=== PATIENT | female | born 1950 | race Caucasian/White ===

== ENCOUNTER 2019-02-21 14:23 | Emergency (ER) | payer BC, MEDICARE ==
[2019-02-21 14:42] VITALS: BP 123/53
--- NOTE | 2019-02-21 15:06 | UC ---
Complaint Female HPI - HPI Summary HPI Summary: Pt presents with c/o gradual onset of genital discomfort that began a "few days ago" . Pt states that she has been drinking large amounts of water and cranberry juice and is concerned that she has a UTI. - History Of Current Complaint Chief Complaint: UCGU Stated Complaint: URINARY Time Seen by Provider: 02/21/19 14:47 Hx Obtained From: Patient ?: No Onset/Duration: Gradual Onset, Lasting Days, Still Present Timing: Intermittent Severity Initially: Mild Severity Currently: Mild Pain Intensity: 0 Character: Dull, Burning Aggravating Factor(s): Urination Alleviating Factor(s): Nothing Associated Signs And Symptoms: Positive: Vaginal Discharge - white - Risk Factors Ectopic Risk Factor: Negative Ovarian Torsion Risk Factor: Negative - Allergies/Home Medications Allergies/Adverse Reactions: Allergies Allergy/AdvReac Type Severity Reaction Status Date / Time sulfamethoxazole Allergy Hives Verified 02/21/19 14:42 [From Bactrim] trimethoprim [From Bactrim] Allergy Hives Verified 02/21/19 14:42 Home Medications: Home Medications Finasteride TAB* [Proscar TAB*] 5 mg PO BID 02/21/19 [History Confirmed 02/21/19 ] Lisinopril TAB* [Prinivil TAB*] 5 mg PO DAILY 02/21/19 [History Confirmed ] Rivaroxaban TAB(*) [Xarelto 10 mg (*)] 10 mg PO DAILY 02/21/19 [History Confirmed 02/21/19] PMH/Surg Hx/FS Hx/Imm Hx Previously Healthy: Yes Cardiovascular History: Cardiac Disease, Hypertension - Surgical History Surgical History: Yes Surgery Procedure, Year, and Place: RT LEG VEIN REMOVAL 1994; TUBAL 1994; CYSTS REMOVED ON BOTH OVERAIES IN 1999; - Family History Known Family History: Positive: Cardiac Disease - Social History Occupation: Retired Lives: With Family Alcohol Use: Rare Substance Use Type: None Smoking Status (MU): Never Smoked Tobacco Have You Smoked in the Last Year: No Review of Systems All Other Systems Reviewed And Are Negative: Yes Constitutional: Positive: Negative Skin: Positive: Negative Eyes: Positive: Negative ENT: Positive: Negative Respiratory: Positive: Negative Cardiovascular: Positive: Negative Gastrointestinal: Positive: Negative Genitourinary: Positive: Dysuria, Urgency, Vaginal/Penile Burning, Vaginal/ Penile Itching, Vaginal/Penile Discharge Motor: Positive: Negative Neurovascular: Positive: Negative Musculoskeletal: Positive: Negative Neurological: Positive: Negative Psychological: Positive: Negative Is Patient Immunocompromised?: No Physical Exam Triage Information Reviewed: Yes Appearance: Well-Appearing Vital Signs: Initial Vital Signs Temp 98.2 F 02/21/19 14:37 Pulse 76 02/21/19 14:37 Resp 18 02/21/19 14:37 BP 123/53 02/21/19 14:37 Pulse Ox 98 02/21/19 14:37 Vital Signs Reviewed: Yes Eye Exam: Normal ENT Exam: Normal ENT: Positive: Hearing grossly normal Neck exam: Normal Respiratory Exam: Normal Respiratory: Positive: No respiratory distress Abdominal Exam: Normal Pelvic Exam: Positive: Other - pt declined pelvic exam Musculoskeletal Exam: Normal Neurological Exam: Normal Psychological Exam: Normal Skin Exam: Normal Complaint Female Dx - Differential Dx/Diagnosis Differential Diagnosis/HQI/PQRI: Sexually Transmitted Disease, Urinary Tract Infection Provider Diagnosis: Dysuria, Vaginal discomfort Discharge ED - Sign-Out/Discharge Documenting (check all that apply): Patient Departure All imaging exams completed and their final reports reviewed: No Studies - Discharge Plan Condition: Stable Disposition: HOME Patient Education Materials: Dysuria (ED) Referrals: Francisca Miguel MD [Primary Care Provider] - If Needed Additional Instructions: Please follow up with your PCP as needed. If your symptoms do not improve or they worsen, please seek medical care as soon as possible. - Billing Disposition and Condition Condition: STABLE Disposition: Home
== END 2019-02-21 15:18 | disposition home or self-care (01) ==
LOC: UCCORT 14:23
DX: I10 Essential (primary) hypertension (principal); R03.0 Elevated blood-pressure reading, without diagnosis of hypertension; R10.2 Pelvic and perineal pain
CPT/HCPCS: 81003; 87480; 87510; 99211; G0463

== ENCOUNTER 2023-01-27 08:54 | Observation (INO) ==
[2023-01-27] MEDS ORDERED: Metoprolol Tartrate 5 mg VIAL 5 ml VIAL (1 mg/ml) IV ONE ×2 (08:57→09:06)
[2023-01-27 09:12] LABS: ABS Eosinophils 0.1 10^3/uL (0.0-0.5); ABS Lymphocytes 1.8 10^3/uL (1.0-4.8); ABS Monocytes 0.6 10^3/uL (0.0-0.9); ABS Neutrophils 3.1 10^3/uL (1.5-7.6); ABS Nucleated RBC 0.01 10^3/ul; Eosinophil % 1.4 %; Hematocrit 43.9 % (35-45); Hemoglobin 14.9 g/dL (11.5-14.3); Lymphocyte % 31.8 %; Mean Corpuscular Hemoglobin 30.7 pg (27-33); Mean Corpuscular Hgb Conc 33.9 g/dL (31-36); Mean Corpuscular Volume 90.5 fL (80-97); Mean Platelet Volume 8.4 fL (7.5-11.2); Nucleated Red Blood Cells % 0.2 /100 WBC (0.0-0.4); Platelet Count 173 10^3/uL (150-450); Red Blood Count 4.85 10^6/uL (3.63-4.92); Red Cell Distribution Width 14.4 % (12-17); White Blood Count 5.6 10^3/uL (3.8-11.8)
[2023-01-27 09:24] LABS: Activated Partial Thrombo Time 48.6 seconds (26.0-38.0); INR 1.37 (0.88-1.18)
[2023-01-27 09:31] LABS: Albumin 3.8 g/dL (3.2-5.2); Calcium 8.4 mg/dL (8.6-10.3); Potassium 4.3 mmol/L (3.5-5.0); Total Bilirubin 0.5 mg/dL (0.2-1.0)
[2023-01-27 09:37] LABS: Albumin/Globulin Ratio 1.4 (1-3); Creatinine, Serum 0.78 mg/dL (0.51-0.95); Globulin 2.7 g/dL (2-4); Total Protein 6.5 g/dL (6.4-8.9); eGFR CKD-EPI 79.7 (>60)
[2023-01-27 10:40] LABS: High Sensitivity Troponin 1 Hr 10 pg/mL (<15)
[2023-01-27] MEDS ORDERED: Nitroglycerin 0.3 mg TAB SL PRN (14:59)
[2023-01-27 16:11] LABS: High Sensitivity Troponin 3 Hr 13 pg/mL (<15)
[2023-01-27] MEDS ORDERED: Iohexol 350 (CONTRAST) 500 ML MDV IV ONE (16:43)
[2023-01-27 18:01] VITALS: BP 118/79
[2023-01-27] MEDS ORDERED: CMCS: Nebivolol 2.5 mg TAB (NF) PO SCH (21:00)
[2023-01-28] MEDS ORDERED: Cholecalciferol (VIT D3) 1,000 unit TAB PO SCH (09:00)
== END 2023-01-27 20:25 | disposition home or self-care (01) ==
LOC: EDHOLD 08:54 → ED 08:54 → EDHOLD 20:24
PROVIDERS: ADMIT Student in an Organized Health Care Education/Training Program; ATTEND Student in an Organized Health Care Education/Training Program